=== PATIENT | female | born 1980 | race Caucasian/White ===

== ENCOUNTER → 2020-03-28 | Outpatient (CLI) | payer BC ==
--- NOTE | 2020-03-28 12:41 | Diagnostic Imaging Report ---
PROCEDURE: US Non-ob pelvis comp/trans. INDICATION: Right lower quadrant pelvic pain TECHNIQUE: Multiple real time john scale sonographic images were obtained of the pelvis transabdominally and endovaginally. CORRELATION STUDY: None FINDINGS: UTERUS: 8.0 x 4.5 x 5.3 cm. The uterus appears unremarkable. ENDOMETRIUM: 9 mm. The endometrium appearing unremarkable. RIGHT OVARY: 3.1 x 1.9 x 3.3 cm LEFT OVARY: 2.6 x 1.3 x 2.5 cm The ovaries have an unremarkable appearance. No concerning mass. Normal blood flow to the ovaries. Trace free fluid right adnexa, within physiologic range. IMPRESSION: 1. Unremarkable appearing pelvic ultrasound examination. Dictated by: Dictated on workstation # [id number]
== END ==
LOC: RAD 10:07
PROVIDERS: ATTEND Nurse Practitioner
DX: R10.2 Pelvic and perineal pain (principal)
CPT/HCPCS: 76830; 76856

== ENCOUNTER → 2020-04-07 | Outpatient (CLI) | payer BC ==
--- NOTE | 2020-04-07 10:53 | Diagnostic Imaging Report ---
PROCEDURE: CT urinary tract, rule out kidney stone. TECHNIQUE: Multiple contiguous axial images were obtained through the abdomen and pelvis without the use of intravenous contrast. Auto Exposure Controls were utilized during the CT exam to meet ALARA standards for radiation dose reduction. INDICATION: Pelvic pain. COMPARISON: There are no prior studies available for comparison. FINDINGS: The pelvic ultrasound exam performed on 03/28/2020 failed to show any sign of an acute abnormality of the pelvis. On this study, there is no pelvic mass or free fluid collection evident. The uterus and urinary bladder are grossly unremarkable. The appendix is not well visualized but there are no indirect signs of acute appendicitis. There is no evidence for nephrolithiasis or urolithiasis and the kidneys do not appear to be obstructed. The liver, spleen, pancreas, adrenals, gallbladder, aorta, and inferior vena cava show no sign of an acute abnormality. The stomach is partially filled with fluid and consequently difficult to assess. The lung bases are clear. The bone windows show no sign of a fracture or destructive lesion. IMPRESSION: 1. There is no evidence for an acute abnormality of the abdomen or pelvis. In particular, there is no sign of nephrolithiasis or urolithiasis to account for the patient's hematuria. 2. The urinary bladder shows no definite abnormality. If further evaluation is desired, then cystoscopy would be recommended. Dictated by: Dictated on workstation # [id number]
== END ==
LOC: RAD 08:54
PROVIDERS: ATTEND Nurse Practitioner Family
DX: R10.2 Pelvic and perineal pain (principal)
CPT/HCPCS: 74176

== ENCOUNTER → 2022-11-30 | Outpatient (CLI) | payer BC ==
--- NOTE | 2022-11-30 10:10 | Diagnostic Imaging Report ---
PROCEDURE: CT abdomen and pelvis without contrast. TECHNIQUE: Multiple contiguous axial images were obtained through the abdomen and pelvis without the use of intravenous contrast. Auto Exposure Controls were utilized during the CT exam to meet ALARA standards for radiation dose reduction. INDICATION: Right-sided abdominal pain. COMPARISON: 04/07/2020. FINDINGS: The heart is unremarkable. The lung bases are clear. Calcified granuloma is seen in the right lung base. The liver, spleen, pancreas, adrenal glands, and kidneys have a normal noncontrast CT appearance. The gallbladder is nondistended. There is no pathologically enlarged mesenteric or retroperitoneal adenopathy. The bowel loops are nondilated. The appendix is visualized in the right lower quadrant and has a normal appearance. There is no free fluid or free air. No acute osseous abnormalities. Ureters and bladder are normal. Calcified granulomas are seen in the pelvis. There is no free air, loculated collection, or adenopathy in the pelvis. IMPRESSION: 1. No acute abnormalities in the abdomen and pelvis. No obstructing calculi or hydronephrosis. Normal appendix. Dictated by: Dictated on workstation # [id number]
== END ==
LOC: RAD 09:22
PROVIDERS: ATTEND Nurse Practitioner Family
DX: N21.8 Other lower urinary tract calculus (principal); N39.0 Urinary tract infection, site not specified; F41.9 Anxiety disorder, unspecified; M54.89 Other dorsalgia; R19.01 Right upper quadrant abdominal swelling, mass and lump; R11.0 Nausea
CPT/HCPCS: 74176

== ENCOUNTER 2023-03-13 22:20 | Emergency (ER) | payer BC ==
[~2023-03-13] VITALS: Ht 167.7 cm; Wt 59.8 kg
[2023-03-13 22:23] VITALS: BP 144/105
--- NOTE | 2023-03-13 22:26 | ED Cough/URI ---
General Stated Complaint: CONGESTION/HEADACHE/COUGH/SORE THROAT/BODYACHES Source: patient History of Present Illness Date Seen by Provider: March 13, 2023 Time Seen by Provider: 22:25 Initial Comments PT ARRIVES VIA POV FROM HOME PT HAS BEEN SICK FOR THE LAST 3 DAYS WITH: -PRODUCTIVE COUGH -SORE THROAT--IS PT'S WORST COMPLAINT. -BILATERAL EAR PAIN -NASAL CONGESTION AND DRAINAGE -SUBJECTIVE FEVER AND CHILLS. -BODY ACHES NO CHEST PAIN OR SHORTNESS OF BREATH NO GI SYMPTOMS PT'S / S.O. AND HIS MOTHER HAVE BOTH BEEN ILL WITH THE SAME--THEY GOT SICK BEFORE PT BEGAN HAVING SYMPTOMS NO RELIEF WITH OTC DAYQUIL. NO CHRONIC MEDICAL PROBLEMS PT DOES SMOKE CIGARETTES. PCP: DR. LE Allergies and Home Medications Allergies Coded Allergies: Sulfa (Sulfonamide Antibiotics) (Verified Allergy, Unknown, Hives, 03/13/23) Patient Home Medication List Home Medication List Reviewed: Yes Amoxicillin/Potassium Clav (Amox Tr-K Clv 875-125 mg Tab) 875 Mg-125 Mg Tablet, 1 EACH PO BID Prescribed by: DOLORES HOOPER on 03/13/232332 Benzonatate (Tessalon Perles) 100 Mg Capsule, 200 MG PO TID Prescribed by: DOLORES HOOPER on 03/13/232332 Methylprednisolone (Medrol) 4 Mg Tab.ds.pk, 4 MG PO UD Prescribed by: DOLORES HOOPER on 03/13/232332 Promethazine/Dextromethorphan (Promethazine-Dm Syrup) 6.25 Mg-15 Mg/5 Ml Syrup, 5 ML PO Q4H Prescribed by: DOLORES HOOPER on 03/13/232332 Triamcinolone Acetonide (Nasacort) 55 Mcg [place], 2 SPRAYS NS BID Prescribed by: DOLORES HOOPER on 03/13/232332 Review of Systems Review of Systems Constitutional: see HPI, chills, fever, malaise EENTM: see HPI, ear pain, nose congestion, throat pain Respiratory: see HPI, cough; No short of breath, No wheezing Cardiovascular: no symptoms reported Gastrointestinal: no symptoms reported Genitourinary: no symptoms reported Musculoskeletal: see HPI Skin: no symptoms reported Psychiatric/Neurological: See HPI, Headache Hematologic/Lymphatic: No Symptoms Reported Immunological/Allergic: no symptoms reported Past Vumszqp-Eldsvd-Hmqtal Hx Patient Social History Tobacco Use?: Yes Tobacco type used: Cigarettes Smoking Status: Current Everyday Smoker Substance use?: No Alcohol Use?: No Past Medical History Surgeries: No Respiratory: No Cardiac: No Neurological: No Genitourinary: No Gastrointestinal: No Musculoskeletal: No Endocrine: No HEENT: No Cancer: No Psychosocial: No Integumentary: No Blood Disorders: No Physical Exam Vital Signs - First Documented 03/13/23 22:23 Temp 37.3 Pulse 111 Resp 16 B/P (MAP) 144/105 (118) Pulse Ox 97 O2 Delivery Room Air Capillary Refill : Height: '" Weight: lbs. oz. kg; BMI Method: General Appearance: WD/WN, no apparent distress, other (+ ODOR OF CIGARETTES) HEENT: PERRL/EOMI; No photophobia; other (MARKED NASAL CONGESTION AND CLEAR RHINORRHEA. NO SINUS TENDERNESS. PHARYNX INFLAMED, NO EXUDATES, NO TONSILLAR SWELLING, VOICE NORMAL. CLEAR POST NASAL DRAINAGE. LEFT TM INFLAMED, RIGHT TM CLEAR. 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 as tested, no motor/sensory deficits, alert, normal mood/affect, oriented x 3 Skin: normal color, warm/dry Progress/Results/Core Measures Suspected Sepsis SIRS Temperature: Pulse: Respiratory Rate: Blood Pressure / Mean: Results/Orders Lab Results Laboratory Tests Test 03/13/23 22:33 Range/Units Influenza Type A (RT-PCR) Not Detected Not Detecte Influenza Type B (RT-PCR) Not Detected Not Detecte SARS-CoV-2 RNA (RT-PCR) Not Detected Not Detecte Group A Streptococcus Screen NEGATIVE NEGATIVE My Orders Orders - DOLORES HOOPER DO Rapid Strep A Screen (03/13/23 22:25) Covid 19 Inhouse Test (03/13/23 22:25) Influenza A And B By Pcr (03/13/23 22:25) Isolation Central Supply Req (03/13/23 22:25) Throat Culture Strep A Confirm (03/13/23 22:33) Benzonatate Capsule (Tessalon Perles) (03/13/23 23:30) Amoxicillin/Clavulanate Tablet (Augmenti (03/13/23 23:30) Promethazine/ Codeine Syrup (Phenergan W (03/13/23 23:30) Vital Signs/I&O 03/13/23 22:23 Temp 37.3 Pulse 111 Resp 16 B/P (MAP) 144/105 (118) Pulse Ox 97 O2 Delivery Room Air Capillary Refill : Progress Note : Progress Note PLACED IN ISOLATION ROOM PPE WORN COVID, FLU, STREP TESTING DONE, AND ALL ARE NEGATIVE. NO DETERIORATION IN PT'S CONDITION DURING ER STAY VITALS STABLE DISCUSSED TEST RESULTS, ANTICIPATED COURSE, SYMPTOMATIC TREATMENT, MEDICATIONS, NEED FOR FOLLOW UP AND RETURN PRECAUTIONS PT HAS NOT HAD ANY PRIOR VISITS HERE. Departure Impression Primary Impression: Upper respiratory infection Additional Impressions: Pharyngitis Left otitis media Disposition: HOME, SELF-CARE Condition: Stable Departure-Patient Inst. Decision time for Depature: 23:20 Referrals: LINDA LE DO (PCP/Family) Primary Care Physician Patient Instructions: Ear Infections (Otitis Media) in Adults (DC), Sore Throat, Adult ED, Upper Respiratory Infection ED Add. Discharge Instructions: LOTS OF CLEAR LIQUIDS--WATER, BROTH, JELLO, GATORADE TYLENOL 1 GRAM PLUS MOTRIN 800 MG 4 TIMES A DAY FOR PAIN OR FEVER TAKE CLARITIN OR ZYRTEC DAILY FOR NASAL DRAINAGE. FOLLOW UP WITH DR. LE IN 3-4 DAYS IF NO BETTER, RETURN TO ER IF SYMPTOMS WORSEN Scripts Promethazine/Dextromethorphan (Promethazine-Dm Syrup) 6.25 Mg-15 Mg/5 Ml Syrup 5 ML PO Q4H for Cough, #200 ML Prov: GAYLA HOOPERA K 03/13/23 Benzonatate (TESSALON PERLES) 100 Mg Capsule 200 MG PO TID, #30 CAP Prov: DOLORES HOOPER K 03/13/23 Triamcinolone Acetonide (Nasacort) 55 Mcg [place] 2 SPRAYS NS BID, #1 SPRAY Prov: DOLORES HOOPER K 03/13/23 Methylprednisolone (Medrol) 4 Mg Tab.ds.pk 4 MG PO UD for 6 Days, #21 PKG PER DOSE PACK INSTRUCTIONS Prov: DOLORES HOOPER DO 03/13/23 Amoxicillin/Potassium Clav (Amox Tr-K Clv 875-125 mg Tab) 875 Mg-125 Mg Tablet 1 EACH PO BID for 15 Days, #30 TAB Prov: DOLORES HOOPER DO 03/13/23 DOLORES HOOPER DO March 13, 2023 22:26
[2023-03-13] MEDS ORDERED: BENZONATATE 100 MG (TESSALON) CAPSULE PO SCH (23:30)
[2023-03-13] MEDS ORDERED: AUGMENTIN 875 MG TAB (AMOXICILLIN/CLAVULANATE) PO SCH (23:30)
[2023-03-13] MEDS ORDERED: PROMETHAZINE/ CODEINE SYRUP 5 ML UDC PO ONE (23:30)
[2023-03-13] MEDS ORDERED: TRIA10.8 NS (23:33)
[2023-03-13] MEDS ORDERED: METH4TAB PO (23:33)
[2023-03-13] MEDS ORDERED: BENZ100C18 PO (23:33)
[2023-03-13] MEDS ORDERED: AMOX1TAB12 PO (23:33)
[2023-03-13] MEDS ORDERED: D-ME473S11 PO (23:33)
== END 2023-03-13 23:45 | disposition home or self-care (01) ==
LOC: EDUNIT# 22:20 → ER 22:22
DX: J02.9 Acute pharyngitis, unspecified (principal); H66.92 Otitis media, unspecified, left ear; F17.210 Nicotine dependence, cigarettes, uncomplicated; Z20.822 Contact with and (suspected) exposure to COVID-19; Z88.1 Allergy status to other antibiotic agents
CPT/HCPCS: 87430; 87636; 99283